=== PATIENT | male | born 1985 | race Caucasian/White ===

== ENCOUNTER 2017-01-03 11:52 | Emergency (ER) | payer OTHER ==
[~2017-01-03 11:52] MED LIST: CYCLOBENZAPRINE10 MG PO; NORCO 5-325 TA1 EACH PO
[2017-01-03] MEDS ORDERED: ROBAXIN500 MG PO (12:05)
[2017-01-03] MEDS ORDERED: OXYCODONE-ACET1 EAC1 PO (12:06)
== END 2017-01-03 12:12 | disposition home or self-care (01) ==
LOC: ED 11:52
DX: Z00.8 Encounter for other general examination (principal)

== ENCOUNTER 2017-07-07 16:29 | Emergency (ER) | payer OTHER ==
[~2017-07-07] VITALS: Ht 180.3 cm; Wt 72.6 kg
[~2017-07-07 16:29] MED LIST changes: +OXYCODONE-ACET1 EAC1 PO; +ROBAXIN500 MG PO
--- OUTSIDE RECORDS SUMMARY | 2017-07-07 16:33 | XMS ---
Demographics + + + | Address | [address] | | | [place] [address] | + + + | Preferred Language | Unknown | + + + | Marital Status | Unknown | + + + | Holiness Affiliation | Unknown | + + + | Race | Unknown | + + + | Ethnic Group | Unknown | + + + Author + + + | Author | [facility] | + + + | Organization | [facility] | + + + | Address | [address] | | | [place] [address] | + + + | Phone | | + + + Care Team Providers + + + + | Care Credit Review Analyst Name | Role | Phone | + + + + Unavailable | Unavailable | + + + + PROBLEMS +---------+ + + +--------+ + + | Type | Condition | ICD9-CM | [id number] | Onset | Condition | SNOMED | | | | Code | Code | Dates | Status | Code | +---------+ + + +--------+ + + | Problem | Low back | | M54.5 | | Active | [id number] | | | pain | | | | | | +---------+ + + +--------+ + + ALLERGIES + + + + +--------+ | Substance | Reaction | Event Type | Date | Status | + + + + +--------+ | Ibuprofen | stomach issues | Drug Allergy | Dec, | Active | + + + + +--------+ SOCIAL HISTORY No smoking Hx information available PLAN OF CARE + +---------+ | Activity | Details | + +---------+ +---+ | | +---+ + + + | Follow Up | as scheduled with PCP Reason:null | + + + | Pending Test | X ray : Hand AP/L/O (3+views)- RT | + + + VITAL SIGNS + + + + | Height | 74.5 in | 2017-01-03 | + + + + | Weight | 158.6 lbs | 2017-01-03 | + + + + | BMI | 20.09 kg/m2 | 2017-01-03 | + + + + | Temperature | 98.5 degrees Fahrenheit | 2017-01-03 | + + + + | Heart Rate | 70 /min | 2017-01-03 | + + + + | Blood pressure systolic | 141 mm Hg | 2017-01-03 | + + + + | Blood pressure diastolic | 105 mm Hg | 2017-01-03 | + + + + MEDICATIONS + + +--------+ +--------+ + +--------+ | Medicati | Instruct | Dosage | Frequenc | Start | End Date | Duration | Status | | on | ions | | y | Date | | | | + + +--------+ +--------+ + +--------+ | Methocar | | | | | | | Active | | bamol | | | | | | | | + + +--------+ +--------+ + +--------+ RESULTS No Results PROCEDURES + + + + + | Procedure | Date Ordered | Related Diagnosis | Body Site | + + + + + | DRAINAGE OF SKIN | January 03, 2017 | | | | ABSCESS | | | | | (complicated) | | | | + + + + + | Est Level III | January 03, 2017 | | | | Intermediate | | | | + + + + + IMMUNIZATIONS No Known Immunizations"
[2017-07-07] MEDS ORDERED: AMITRIPTYLINE H25 MG PO (16:43)
[2017-07-07] MEDS ORDERED: MELATONIN10 M2 PO (16:44)
[2017-07-07] MEDS ORDERED: BACLOFEN10 MG PO (16:51)
[2017-07-07] MEDS ORDERED: METHYLPREDNISOLO4 M1 PO (16:51)
== END 2017-07-07 17:00 | disposition home or self-care (01) ==
LOC: ED 16:29
DX: S39.012A Strain of muscle, fascia and tendon of lower back, initial encounter (principal); J45.909 Unspecified asthma, uncomplicated; Z91.018 Allergy to other foods; Z88.6 Allergy status to analgesic agent; Z79.899 Other long term (current) drug therapy; W00.0XXA Fall on same level due to ice and snow, initial encounter
CPT/HCPCS: 99283

== ENCOUNTER 2019-03-19 20:21 | Emergency (ER) | payer OTHER ==
[~2019-03-19] VITALS: Ht 180.3 cm; Wt 72.6 kg
[~2019-03-19 20:21] MED LIST changes: +AMITRIPTYLINE H25 MG PO; +BACLOFEN10 MG PO; +MELATONIN10 M2 PO; +METHYLPREDNISOLO4 M1 PO
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
--- NOTE | 2019-03-20 18:16 | EKG ---
[facility] [address] [place] [address] Signed Sinus tachycardia Otherwise normal ECG No previous ECGs available Confirmed by SO AQUINO MD ([id number]) on 03/20/2019 6:16:22 PM Electronically Signed By: SO AQUINO MD 03/20/19 1816 PATIENT NAME: LUIS GORMAN Electrocardiogram DATE OF : 81 PHYSICIAN: SO AQUINO MD REPORT #: [id number] REPORT IS CONFIDENTIAL AND NOT TO BE RELEASED WITHOUT AUTHORIZATION
== END 2019-03-19 22:51 | disposition home or self-care (01) ==
LOC: ED 20:21
PROC: 0T9B70Z Drainage of Bladder with Drainage Device, Via Natural or Artificial Opening (ICD-10-PCS; principal; 2019-03-19)
DX: F15.10 Other stimulant abuse, uncomplicated (principal); F45.8 Other somatoform disorders; F17.200 Nicotine dependence, unspecified, uncomplicated; Z88.6 Allergy status to analgesic agent; Z91.018 Allergy to other foods
CPT/HCPCS: 51701; 71046; 80053; 84484; 85025; 85379; 93005; 93010; 99284-25; J2060

== ENCOUNTER 2024-02-03 14:31 | Emergency (ER) | payer OTHER ==
[~2024-02-03] VITALS: Ht 180.3 cm; Wt 69.7 kg
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
[2024-02-03] MEDS ORDERED: BUPRENORPHINE HC8 MG SL (14:49)
[2024-02-03] MEDS ORDERED: GABAPENTIN600 MG PO (14:49)
[2024-02-03] MEDS ORDERED: SODIUM CHLORIDE 0.9% 1,000 ML IV PRN ×2 (15:00→16:00)
[2024-02-03 15:05] LABS: BASOPHILS 0.9 % (0-2); EOSINOPHILS 4.2 % (0-6); HEMATOCRIT 41.2 % (35.0-50.0); HEMOGLOBIN 14.2 g/dL (12.0-18.0); LYMPHOCYTES 30.6 % (24-44); MCH 31.2 (27-36); MCHC 34.5 g/dl (30-36); MCV 90.4 fl (81-99); MONOCYTES 8.4 % (0-12); NEUTROPHILS 55.9 % (39-80); PLATELET COUNT 245 K/uL (140-440); RBC 4.56 M/ul (4.3-5.7); RDW 13.9 (10.5-15.0)
[2024-02-03] MEDS ORDERED: ondansetron HCL 4 MG/2 ML VIAL IV ONE (15:15)
[2024-02-03] MEDS ORDERED: MORPHINE SULFATE 4 MG/ML VIAL IV ONE (15:15)
[2024-02-03 15:20] LABS: ALBUMIN 4.1 g/dL (3.4-5.0); ALBUMIN/GLOBULIN RATIO 1.14 (1.1-2.4); ANION GAP 14.4 (7-21); BILIRUBIN, TOTAL 0.8 ng/dL (0.2-1.0); BUN/CREATININE RATIO 19.56 (6.0-28.6); CALCIUM 8.9 mg/dL (8.5-10.1); CREATININE, SERUM 1.38 mg/dL (0.70-1.30); POTASSIUM 3.4 mmol/L (3.5-5.1); PROTEIN, TOTAL 7.7 g/dL (6.4-8.2)
[2024-02-03] MEDS ORDERED: KETOROLAC TROMETHAMINE 30 MG/ML VIAL IV ONE (16:00)
[2024-02-03 17:17] LABS: BILIRUBIN, URINE NEGATIVE (negative); BLOOD/HGB, URINE NEGATIVE (Negative); KETONE, URINE TRACE (Negative); LEUK ESTERASE, URINE NEGATIVE (negative); NITRITE, URINE NEGATIVE (negative); PH, URINE 5.5 (5-7)
[2024-02-03 17:32] LABS: AMPHETAMINES, URINE POSITIVE (NEGATIVE); BARBITURATES, URINE NEGATIVE (NEGATIVE); BENZODIAZEPINE, URINE NEGATIVE (NEGATIVE); BUPRENORPHINE, URINE POSITIVE (NEGATIVE); CANNABINOID, URINE NEGATIVE (NEGATIVE); COCAINE, URINE NEGATIVE (NEGATIVE); ECSTASY, URINE POSITIVE (NEGATIVE); FENTANYL, URINE POSITIVE (NEGATIVE); METHADONE, URINE NEGATIVE (NEGATIVE); OPIATES, URINE POSITIVE (NEGATIVE); OXYCODONE, URINE NEGATIVE (NEGATIVE); PHENCYCLIDINE, URINE NEGATIVE (NEGATIVE)
[2024-02-03 17:37] VITALS: BP 131/96
== END 2024-02-03 17:39 | disposition home or self-care (01) ==
LOC: ED 14:31
PROVIDERS: Emergency Medicine
DX: R10.9 Unspecified abdominal pain (principal); F15.10 Other stimulant abuse, uncomplicated; F16.10 Hallucinogen abuse, uncomplicated; F11.10 Opioid abuse, uncomplicated; J45.909 Unspecified asthma, uncomplicated; F17.200 Nicotine dependence, unspecified, uncomplicated; Z91.018 Allergy to other foods; Z88.6 Allergy status to analgesic agent; Z79.899 Other long term (current) drug therapy
CPT/HCPCS: 36415; 74176; 80053; 80307; 81003; 85025; 85379; 96374; 96375; 99284-25; J1885; J2270; J2405; J7030